=== PATIENT | female | born 1950 | race American Indian/Alaskan Native ===

== ENCOUNTER 2021-01-10 12:02 | Outpatient (CLI) | payer MEDICARE ==
[2021-01-10 12:46] LABS: Hematocrit 38.8 % (30.3-42.9); Hemoglobin 13.1 gm/dl (10.1-14.3); Mean Corpuscular HGB Conc 34 % (30-34); Mean Corpuscular Volume 95 fl (79-97); Platelet Count 190 K/mm3 (140-440); Red Cell Distribution Width 13.5 % (13.2-15.2)
[2021-01-10 13:09] LABS: ABG Base Excess -1.1 mmol/L (-2.0-3.0); ABG HCO3 23.6 mmol/L (20.0-26.0); ABG Methemoglobin 0.4 % (0.0-1.5); ABG Oxygen Saturation 96.5 % (95.0-99.0); ABG PCO2 39.1 mm Hg; ABG PH 7.398 pH Units (7.350-7.450); ABG PO2 84.7 mm Hg (80.0-90.0)
[2021-01-10 13:10] LABS: Alanine Aminotransferase 19 units/L (7-56); Blood Urea Nitrogen 12 mg/dL (7-17); Calcium 9.5 mg/dL (8.4-10.2); Chol/HDL Ratio 3.41 %; HDL Cholesterol 81 mg/dL (40-59); Hemolysis Index 17; LDL Cholesterol,Direct 207 mg/dL (50-130)
[2021-01-10 13:15] LABS: BUN/Creatinine Ratio 17
--- NOTE | 2021-01-10 13:40 | XRay Report ---
CHEST 2 VIEWS INDICATION / CLINICAL INFORMATION: CHRONIC COUGH. FINDINGS: SUPPORT DEVICES: None. HEART / MEDIASTINUM: No significant abnormality. LUNGS / PLEURA: No significant pulmonary or pleural abnormality. No pneumothorax. ADDITIONAL FINDINGS: No significant additional findings. IMPRESSION: 1. No acute findings. Signer Name: Marlon Sears MD Signed: 01/10/2021 1:35 PM Workstation Name: [id number]
== END 2021-01-10 12:03 | disposition home or self-care (01) ==
LOC: XRAY 12:02
PROVIDERS: ATTEND Internal Medicine
DX: R05 Cough (principal); E66.9 Obesity, unspecified
CPT/HCPCS: 36415; 71046; 80053; 80061; 82785; 82803; 84436; 84443; 85027; 86003